=== PATIENT | female | born 1995 | race Two or more races ===

== ENCOUNTER 2018-02-15 15:09 | Emergency (ER) | payer SELFPAY ==
[~2018-02-15] VITALS: Ht 170.2 cm; Wt 63.5 kg
[2018-02-15 15:40] VITALS: BP 130/91
[2018-02-15] MEDS ORDERED: DIPHTH,PERTUSS(ACELL),TET TOX 0.5 ML DISP.SYRIN. VAX IM ONE (15:45)
--- NOTE | 2018-02-15 15:54 | PHYS DOC ---
Past Medical History Past Medical History: No Pertinent History Past Surgical History: No Surgical History Alcohol Use: None Drug Use: None Adult General Chief Complaint Chief Complaint: FOOT INJURY PAIN HPI HPI Patient is a 22 year old Female who presents with was in the kitchen walking towards the refrigerator and there was a large sharp piece of glass on the floor and she did not see it and it poked into her foot right between her left great toe and second toe at 1440 today. The bleeding is controlled. There is a half centimeter open laceration from the glass. Patient states she pulled the glass out does not think any shards cut into the wound. Patient states that she thinks she needs tetanus shot as she cannot remember the last time she had one. Patient denies any surgeries or medical history. She is allergic to penicillins. She rates her pain a 2 out of 10. Patient is ambulatory. Alert and oriented. Review of Systems Review of Systems Constitutional: Denies fever or chills [] Eyes: Denies change in visual acuity, redness, or eye pain [] HENT: Denies nasal congestion or sore throat [] Respiratory: Denies cough or shortness of breath [] Cardiovascular: No additional information not addressed in HPI [] GI: Denies abdominal pain, nausea, vomiting, bloody stools or diarrhea [] : Denies dysuria or hematuria [] Musculoskeletal: Denies back pain or joint pain [] Integument: Denies rash or skin lesions. .5cm laceration between great toe and 2nd toe. [] Neurologic: Denies headache, focal weakness or sensory changes [] Endocrine: Denies polyuria or polydipsia [] All other systems were reviewed and found to be within normal limits, except as documented in this note. Current Medications Current Medications Current Medications Medications (Trade) Dose Ordered Sig/Adrienne Start Time Stop Time Status Last Admin Dose Admin Diphtheria/ Tetanus/Acell Pertussis (Boostrix) 0.5 ml ONCE ONCE 02/15/18 15:45 02/15/18 15:47 DC 02/15/18 15:58 0.5 ML Lidocaine/Sodium Bicarbonate (Buffered Lidocaine 1%) 3 ml 1X ONCE 02/15/18 16:00 02/15/18 16:01 DC 02/15/18 15:57 3 ML Allergies Allergies Allergies Coded Allergies Type Severity Reaction Last Updated Verified Penicillins Allergy Severe HIVES 02/15/18 Yes Physical Exam Physical Exam Constitutional: Well developed, well nourished, no acute distress, non-toxic appearance. [] HENT: Normocephalic, atraumatic, bilateral external ears normal, oropharynx moist, no oral exudates, nose normal. [] Eyes: PERRLA, EOMI, conjunctiva normal, no discharge. [] Neck: Normal range of motion, no tenderness, supple, no stridor. [] Cardiovascular:Heart rate regular rhythm, no murmur [] Lungs & Thorax: Bilateral breath sounds clear to auscultation [] Abdomen: Bowel sounds normal, soft, no tenderness, no masses, no pulsatile masses. [] Skin: Left foot 0.5cm laceration. Warm, dry, no erythema, no rash. [] Back: No tenderness, no CVA tenderness. [] Extremities: No tenderness, no cyanosis, no clubbing, ROM intact, no edema. [] Neurologic: Alert and oriented X 3, normal motor function, normal sensory function, no focal deficits noted. [] Psychologic: Affect normal, judgement normal, mood normal. [] Current Patient Data Vital Signs Vital Signs Date Time Temp Pulse Resp B/P (MAP) Pulse Ox O2 Delivery O2 Flow Rate FiO2 02/15/18 15:40 98.7 78 16 130/91 (104) 98 Room Air 98.7 EKG EKG [] Radiology/Procedures Radiology/Procedures Left foot xray No FB seen Impressions: [facility] [address] [place], [place] [id number] IMAGING REPORT Signed PATIENT: LIANG GODDARD I ACCOUNT: [id number] : 1995 LOCATION: ER AGE: 22 SEX: F EXAM STATUS: REG ER ORD. PHYSICIAN: GEORGE LEMOS APRN REASON: Laceration between great and 2nd toe PROCEDURE: FOOT LEFT 3V Left foot, 3 views, 02/15/2018: HISTORY: Foot laceration No fracture or dislocation is identified. No radiopaque foreign body is evident in the soft tissues. IMPRESSION: No acute left foot abnormality is detected. Electronically signed by: Rachid Dillon MD (02/15/2018 4:55 PM) [facility] DICTATED and SIGNED BY: RACHID DILLON MD DATE: 02/15/18 3544 Course & Med Decision Making Course & Med Decision Making Patient is a 22 year old Female who presents with was in the kitchen walking towards the refrigerator and there was a large sharp piece of glass on the floor and she did not see it and it poked into her foot right between her left great toe and second toe at 1440 today. The bleeding is controlled. There is a half centimeter open laceration from the glass. Patient states she pulled the glass out does not think any shards cut into the wound. Patient states that she thinks she needs tetanus shot as she cannot remember the last time she had one. Patient denies any surgeries or medical history. She is allergic to penicillins. She rates her pain a 2 out of 10. Patient is ambulatory. Alert and oriented. Patient states that she did not take any medications before coming. The area around the laceration is slightly swollen at 1+ but there is no bruising. X-ray of the left foot shows No acute left foot abnormality is detected. Procedure note: laceration left foot, dorsal b/w 1st and 2nd at base. Wound was numbed with 0.5 ml 1% lidocaine. Two simple interrupted sutures were placed using 4-0 nylon. Wound edges were well approximated. Wound was hemostatic. The patient tolerated well. A dressing was placed over the wound. Wound precautions were discussed with the patient. She was advised to come back to the ER in 10 days for suture removal. All of her questions were answered prior to discharge home. Dragon Disclaimer Dragon Disclaimer This electronic medical record was generated, in whole or in part, using a voice recognition dictation system. Departure Departure Referrals: NO PCP (PCP) GEORGE LEMOS APRN Feb 15, 2018 15:54 LINNETTE DOWD DO Feb 15, 2018 18:09
[2018-02-15] MEDS ORDERED: LIDOCAINE WITH 8.4% SOD BICARB 3 ML DISP.SYRIN. INJ ONE (16:00)
--- NOTE | 2018-02-15 16:59 | RAD ---
Left foot, 3 views, 02/15/2018: HISTORY: Foot laceration No fracture or dislocation is identified. No radiopaque foreign body is evident in the soft tissues. IMPRESSION: No acute left foot abnormality is detected. Electronically signed by: Rachid Dillon MD (02/15/2018 4:55 PM) [facility]
== END 2018-02-15 18:28 | disposition home or self-care (01) ==
LOC: ER 15:09
DX: S91.311A Laceration without foreign body, right foot, initial encounter (principal); Z88.0 Allergy status to penicillin; W25.XXXA Contact with sharp glass, initial encounter; Y93.01 Activity, walking, marching and hiking; Y92.090 Kitchen in other non-institutional residence as the place of occurrence of the external cause; Y99.8 Other external cause status
CPT/HCPCS: 12001; 73630; 90471; 90715; 99284-25

== ENCOUNTER 2018-03-01 21:16 | Emergency (ER) | payer SELFPAY ==
[~2018-03-01] VITALS: Ht 167.6 cm; Wt 63.5 kg
[2018-03-01 21:30] VITALS: BP 130/78
--- NOTE | 2018-03-01 21:47 | PHYS DOC ---
Past Medical History Past Medical History: No Pertinent History Past Surgical History: No Surgical History Alcohol Use: None Drug Use: None Adult General Chief Complaint Chief Complaint: SUTURE/STAPLE REMOVAL HPI HPI 22 y/o female returns to ER for suture removal. Pt reports on 02/15 she had sutures placed in lt foot in this ER. Pt reports she has had no s&s of infection and wound has been healing well. Pt denies numbness/tingling. Review of Systems Review of Systems Constitutional: Denies fever or chills [] Respiratory: Denies shortness of breath [] Cardiovascular: No additional information not addressed in HPI [] GI: Denies nausea, vomiting Musculoskeletal: Denies joint pain [] Integument: Denies swelling/redness Neurologic: Denies focal weakness or sensory changes. Denies numbness/tingling All other systems were reviewed and found to be within normal limits, except as documented in this note. Allergies Allergies Allergies Coded Allergies Type Severity Reaction Last Updated Verified Penicillins Allergy Severe HIVES 02/15/18 Yes Physical Exam Physical Exam Constitutional: Well developed, well nourished, no acute distress, non-toxic appearance. [] HENT: Normocephalic, atraumatic, oropharynx moist, nose normal. [] Eyes: pupils equal Neck: Normal range of motion, supple Cardiovascular:Heart rate regular Lungs & Thorax: Resp. equal/nonlabored Skin: Warm, dry, no erythema Extremities: No tenderness, no cyanosis, no clubbing, ROM intact, no edema. 2 sutures intact dorsal surface of lt foot at base of 1st and 2nd digits- no swelling/erythema/drainage and wound is well healing. 2+ dorsal pedis/pedal pulse lt foot Neurologic: Alert and oriented X 3, normal motor function, normal sensory function, no focal deficits noted. [] Psychologic: Affect normal, judgement normal, mood normal. [] Current Patient Data Vital Signs Vital Signs Date Time Temp Pulse Resp B/P (MAP) Pulse Ox O2 Delivery O2 Flow Rate FiO2 03/01/18 21:30 98.6 79 18 130/78 (95) 100 Room Air 98.6 EKG EKG [] Radiology/Procedures Radiology/Procedures [] Course & Med Decision Making Course & Med Decision Making Pt was evaluated in ER for wound recheck and suture removal of 2 sutures placed on 02/15. Wound was well healing with no s&s of infection. RN had removed sutures without difficult and pt had no bleeding/drainage. Pt had steady gait. Pt was neuro/vascular intact in lt LE. Discharge instructions discussed and education provided on wound care and s&s to return to ER for. Dragon Disclaimer Dragon Disclaimer This electronic medical record was generated, in whole or in part, using a voice recognition dictation system. Departure Departure Impression: Primary Impression: Visit for suture removal Disposition: HOME, SELF-CARE Condition: STABLE Referrals: NO PCP (PCP) Patient Instructions: Suture Removal Additional Instructions: Continue monitoring your wound for signs of infection. Follow-up with primary doctor with any concerns. CHANDRIKA GAFFNEY PARKS RECREATION DIRECTOR Mar 01, 2018 21:47
== END 2018-03-01 21:48 | disposition home or self-care (01) ==
LOC: ER 21:16
DX: S91.112D Laceration without foreign body of left great toe without damage to nail, subsequent encounter (principal); Z88.0 Allergy status to penicillin; X58.XXXD Exposure to other specified factors, subsequent encounter
CPT/HCPCS: 99281